=== PATIENT | female | born 1980 | race Caucasian/White ===

== ENCOUNTER 2022-01-02 16:09 | Outpatient (CLI) | payer OTHER | END 2022-01-02 16:10 | disposition home or self-care (01) | LOC: CSHRAD 16:09 | PROVIDERS: ATTEND Nurse Practitioner Adult Health | DX: M54.50 Low back pain, unspecified (principal); M47.816 Spondylosis without myelopathy or radiculopathy, lumbar region | CPT/HCPCS: 72100 ==

== ENCOUNTER 2023-08-20 16:24 | Emergency (ER) | payer MEDICARE, OTHER ==
[~2023-08-20 16:24] MED LIST: Iopamidol 300 61% 100 ML VIAL FS ONE
[2023-08-20] MEDS ORDERED: Promethazine HCl 25 MG, Admixture Fee 1 EACH in Sodium Chloride 0.9% 50 ML IVPB SCH (17:30)
[2023-08-20 17:33] LABS: Bilirubin Neg (Negative); Blood, Urine Negative (Negative); Clarity Clear (Clear); Glucose, Urine (Dipstick) Normal (Negative); Ketone, Urine Negative (Negative); Leukocyte 25 (Negative); Nitrite Negative (Negative); Protein, Urine (Dipstick) 15 mg/dl (Neg-Trace); pH, Urine 6.5 (5.0-9.0)
[2023-08-20] MEDS ORDERED: diphenhydrAMINE 50 MG/ML VIAL ONE (17:39)
[2023-08-20] MEDS ORDERED: Famotidine/PF 20 mg/2ml Vial ONE (17:40)
[2023-08-20 17:44] LABS: #Basophils 0.1 10x3/uL (0.0-0.2); #Eosinphils 0.2 10x3/uL (0.0-0.5); #Monocytes 0.8 10x3/uL (0.0-1.1); #Neutrophils 4.7 10x3/uL (1.5-8.4); %Basophils 0.8 % (0.0-2.0); %Eosinophils 2.9 % (0.0-6.0); %Lymphocytes 22.3 % (18.0-47.0); %Monocytes 10.8 % (0.0-10.0); %Neutrophils 62.7 % (40.0-75.0); Bacteria/HPF 3+ HPF (None Seen); CAUTI Indications for Culture Pelvic or flank pain; Hematocrit 38.7 % (34.9-44.5); Hemoglobin 13.7 g/dL (12.0-15.5); Mean Corpuscular HGB CONC 35.4 g/dL (32.0-36.0); Mean Corpuscular Hemoglobin 32.9 pg (27.0-33.0); Mean Platelet Volume 9.7 fl (7.4-10.4); Mucous/LPF 1+ LPF (<2+); Platelet Count 193 10x3/uL (150-450); RBC Distribution Width 12.5 % (11.5-14.5); RBC/HPF None Seen HPF (0-3); Red Blood Cell (RBC) Count 4.16 10x6/uL (3.90-5.03); WBC/HPF 0-3 HPF (0-3); White Blood Cell (WBC) Count 7.5 10x3/uL (3.5-10.5)
[2023-08-20 17:45] LABS: Urine Culture Reflex No No
[2023-08-20 17:47] LABS: ALT (SGPT) 14 U/L (8-55); AST (SGOT) 33 U/L (5-34); Albumin 4.2 g/dL (3.5-5.0); Alkaline Phosphatase 51 U/L (40-110); Anion Gap 15 mmol/L (10-20); BUN (Urea Nitrogen) 9 mg/dL (7.0-18.7); Bilirubin, Total 0.8 mg/dL (0.2-1.2); Calc. Creatinine Clearance 0 mL/min (70-130); Calcium 9.1 mg/dL (7.8-10.44); Carbon Dioxide 23 mmol/L (22-29); Chloride 95 mmol/L (98-107); Estimated GFR 41; Globulin 3.5 g/dL (2.4-3.5); Glucose 82 mg/dL (70-105); Potassium 3.8 mmol/L (3.5-5.1); Protein, Total 7.7 g/dL (6.0-8.3); Sodium 129 mmol/L (136-145)
[2023-08-20] MEDS ORDERED: Hydrocortisone Sod Succ/PF 100 mg/2 ml Vial ONE (18:18)
[2023-08-20] MEDS ORDERED: LevoFLOXacin 750 mg/D5W 150 ml Premix Bag ONE (19:57)
[2023-08-20 20:28] LABS: Lactic Acid 2.4 mmol/L (0.5-2.2)
[2023-08-20] MEDS ORDERED: Ondansetron PF 4 MG/2 ML Vial ONE (20:57)
== END 2023-08-20 21:45 | disposition home or self-care (01) ==
LOC: CSHERS 16:24
DX: J01.90 Acute sinusitis, unspecified (principal); R74.02 Elevation of levels of lactic acid dehydrogenase [LDH]; E03.9 Hypothyroidism, unspecified; Z79.899 Other long term (current) drug therapy
CPT/HCPCS: 36415; 70487; 71045; 80053; 81001; 83605; 85025; 86140; 87040; 96365; 96366; 96372; 96375; J1200; J1720; J1956; J2405; J2550; Q9967; S0028